=== PATIENT | female | born 1970 | race American Indian/Alaskan Native ===

== ENCOUNTER 2018-03-17 06:03 | Emergency (ER) | payer MEDICAID ==
[2018-03-17] MEDS ORDERED: NACL 0.9% 500 ML IR ONE (06:27)
[2018-03-17] MEDS ORDERED: NACL 0.9% IR ONE (07:00)
[2018-03-17] MEDS ORDERED: BOOSTRIX IM ONE (07:00)
[2018-03-17] MEDS ORDERED: XYLOCAINE 1% 20 mL INFILTRATI ONE (07:00)
[2018-03-17] MEDS ORDERED: HALDOL IM ONE (07:00)
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
[2018-03-17 07:59] LABS: BUN/Creatinine Ratio 13; Blood Urea Nitrogen 13 mg/dL (7-17); Calcium 9.2 mg/dL (8.4-10.2); Hemolysis Index 10
[2018-03-17] MEDS ORDERED: BETADINE TP SCH (08:00)
[2018-03-17 10:09] VITALS: BP 97/60
[2018-03-17] MEDS ORDERED: K-DUR PO ONE (10:10)
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
== END 2018-03-17 10:35 | disposition short-term general hospital (02) ==
LOC: ED 06:03
DX: S01.81XA Laceration without foreign body of other part of head, initial encounter (principal); F10.129 Alcohol abuse with intoxication, unspecified; Y90.1 Blood alcohol level of 20-39 mg/100 ml; W22.8XXA Striking against or struck by other objects, initial encounter; Y93.89 Activity, other specified; Y92.89 Other specified places as the place of occurrence of the external cause; Y99.8 Other external cause status; F31.9 Bipolar disorder, unspecified; Z98.51 Tubal ligation status
CPT/HCPCS: 12011; 36415; 70450; 72125; 80048; 82550; 90471; 90715; 96372; 99284; G0480; J1630; 80320

== ENCOUNTER 2022-02-13 08:07 | Emergency (ER) | payer SELFPAY | END 2022-02-13 19:45 | disposition left against medical advice (07) | LOC: ED 08:07 | DX: T67.01XA Heatstroke and sunstroke, initial encounter (principal); Z53.21 Procedure and treatment not carried out due to patient leaving prior to being seen by health care provider; X58.XXXA Exposure to other specified factors, initial encounter; Y93.89 Activity, other specified; Y92.89 Other specified places as the place of occurrence of the external cause; Y99.8 Other external cause status ==